=== PATIENT | female | born 1990 | race Two or more races ===

== ENCOUNTER 2020-06-02 13:29 | Inpatient (IN) | payer OTHER ==
[~2020-06-02] VITALS: Ht 167.6 cm; Wt 2.7 kg
[2020-06-02] MEDS ORDERED: PRENATAL TABLE1 EAC1 PO (14:16)
[2020-06-02] MEDS ORDERED: KEPPRA1000 MG PO (14:17)
== END 2020-06-05 13:41 | disposition home or self-care (01) | DRG 787 ==
LOC: LDR 13:29 → OB/GYN 13:29 → O/R 13:29 → OB/GYN 16:38
PROVIDERS: ADMIT Specialist; ATTEND Specialist
PROC: 4A1HXFZ Monitoring of Products of Conception, Cardiac Rhythm, External Approach (ICD-10-PCS; 2020-06-02)
PROC: 10D00Z1 Extraction of Products of Conception, Low, Open Approach (ICD-10-PCS; principal; 2020-06-02 15:00)
DX: O32.2XX0 Maternal care for transverse and oblique lie, not applicable or unspecified (principal); O99.354 Diseases of the nervous system complicating childbirth; G40.802 Other epilepsy, not intractable, without status epilepticus; Z37.0 Single live birth; Z3A.38 38 weeks gestation of pregnancy; Z20.828 Contact with and (suspected) exposure to other viral communicable diseases